=== PATIENT | female | born 1980 | race Caucasian/White ===

== ENCOUNTER 2016-06-27 09:01 | Emergency (ER) | payer OTHER ==
--- NOTE | ~2016-06-27 | CT71 ---
[facility] RADIOLOGY TEXT RESULTS PATIENT: LUIS MCNEAL LOCATION: SED : 80 UNIT #: [id number] AGE: [address]: Addison Major MD SEX: F ORDER DR: [id number] [place] [id number] E MR#: [id number] Acc #: [id number] NAME: LUIS MCNEAL : 1980 SEX: F STUDY DATE/TIME: 06/27/2016 11:19 UNIT: SED ROOM: STUDY DESCRIPTION: CT Head Wo Contrast Attending Physician: dAdison Major M.D. Ordering Physician: Addison Major M.D. Primary Care Physician: Primary Care Physician No MEDICAL IMAGING REPORT This report is preliminary unless electronic signature is present. EXAM CT brain without contrast media 06/27/2016 COMPARISON 09/08/2014. HISTORY Left eye pain, decreased vision, swelling and discharge, headaches for 2 weeks. TECHNIQUE Axial imaging of the brain was performed without contrast media. This CT examination was performed with one or more of the following radiation dose reduction techniques: automatic exposure control, adjustment of mA and/or kV according to patient size, and iterative reconstruction. FINDINGS Ventricular size and configuration is normal. No intra- or extraaxial mass lesions, fluid collections or mass effect are seen. No focal areas of low attenuation or evidence of acute intracranial hemorrhage. Bone windows are reviewed. They appear normal. The patient does have postop changes of left frontal craniotomy. CONCLUSION Postop changes of prior left frontal craniotomy; otherwise, normal noncontrast CT of the brain. Dictated by... Ruben Geronimo M.D. [facility] RADIOLOGY TEXT RESULTS PATIENT: LUIS MCNEAL LOCATION: SED : 80 UNIT #: [id number] AGE: [address]: Addison Major MD SEX: F ORDER DR: THIS IS AN ELECTRONICALLY VERIFIED REPORT Ruben Geronimo M.D. at 06/28/2016 7:25 AM JACOB/mavis TD: 06/27/2016 12:12 JOB #: [id number] MEDICAL IMAGING REPORT Page 1 of 1
[~2016-06-27 09:01] MED LIST: AMBIEN PO; BACTRIM 400-801 TA1 PO; BACTRIM DS TABL1 TA1 PO; BACTRIM DS TABL1 TAB PO; BENTYL20 MG PO; CIPRO PO; COMBIGAN EYE DRO5 ML; EC-NAPROSYN500 MG PO; ELIMITE60 GM TOP; FLEXERIL10 MG PO; IBUPROFEN400 MG PO; KEFLEX PO; KEFLEX500 M1 PO; KEFLEX500 MG PO; KETOPROFEN PO; KLONOPIN PO; KLONOPIN1 MG PO; LORTAB 5/500 TA1 TA1 PO; LORTAB 7.5-5001 TAB PO; MOTRIN600 MG PO; NAPROXEN PO; NEURONTIN; NEURONTIN300 MG PO; NEURONTIN600 MG PO; NO MEDICATIONS; PHENERGAN PO; PHENERGAN25 M1 PO; PHENERGAN25 MG PO; PRILOSEC20 M1 PO; TAMIFLU75 M1 PO; TAMIFLU75 MG PO; TEGRETOL XR PO; TUSSIONEX PENN473 ML PO; TYLENOL #3 PO; VISTARIL; VOLTAREN50 MG PO; VOLTAREN75 MG PO; WELLBUTRIN; WELLBUTRIN PO; WELLBUTRIN XL PO; XANAX1 MG PO; ZITHROMAX PO
== END 2016-06-27 12:48 | disposition home or self-care (01) ==
LOC: SED 09:01
DX: H10.9 Unspecified conjunctivitis (principal); R51 Headache
CPT/HCPCS: 70450; 99284